=== PATIENT | male | born 1990 | race Asian ===

== ENCOUNTER 2022-07-02 09:58 | Outpatient (CLI) | payer BC, SELFPAY | END 2022-07-02 09:59 | disposition home or self-care (01) | PROVIDERS: PCP Family Medicine; Visit Provider Family Medicine | DX: E66.9 Obesity, unspecified (principal); E78.5 Hyperlipidemia, unspecified; Z13.1 Encounter for screening for diabetes mellitus; D50.9 Iron deficiency anemia, unspecified; Z83.3 Family history of diabetes mellitus | CPT/HCPCS: 80048; 80061 ==

== ENCOUNTER 2024-04-26 05:40 | Emergency (ER) | payer BC, SELFPAY ==
--- OUTSIDE RECORDS SUMMARY | 2024-04-26 05:42 | XMS_ITS | Clinical Summary ---
Author Organization [facility] Address [address] [place] [address] Care Team Providers Care Mortar Man Name Role Phone Sabrina Stringer MD Primary Care Provider [phone] Allergies Active Allergy Reactions Criticality Noted Date Comments Penicillins 10/21/2010 Medications secukinumab (COSENTYX) 150 mg/mL syrg Inject subcutaneou s. 0 06/09/2017 Active Active Problems Problem Noted Date Diagnosed Date Encounter to establish care 06/09/2017 Headache(784.0) 10/24/2010 Anemia, unspecified 10/24/2010 Nausea with vomiting 10/24/2010 Abnormal liver function test 10/24/2010 Other psoriasis 10/22/2010 Fever 10/22/2010 C. difficile diarrhea Immunizations Name Administration Dates Next Due Tdap 10/27/2006 Family History Medical History Relation Name Comments No Known Problems Father No Known Problems Mother Other Other no signif fh, n eg for heart disease, dm, stroke, cancer, anemia Kidney failure Paternal Grandfather Stroke Paternal Grandmother Relation Name Status Comments Father Mother Other Paternal Grandfather Paternal Grandmother Social History Tobacco Use Types Packs/Day Years Used Date Smoking Tobacco: Never Smokeless Tobacco: Never Alcohol Use Standard Drinks/Week Comments Yes 0 (1 standard drink = 0.6 oz pur e alcohol) socially only PHQ-2 Answer Date Recorded PHQ-2 Score 0 05/03/2018 Sex and Gender Information Value Date Recorded Sex Assigned at Not on file Legal Sex Male 7:02 AM CSO Gender Identity Not on file Sexual Orientation Not on file Obstetrics History Last Filed Vital Signs Vital Sign Reading Time Taken Comments Blood Pressure 120/70 06/09/2017 12:21 PM CDT Pulse 90 06/09/2017 12:21 PM CDT Temperature 36.3 C (97.4 F) 06/09/2017 12:21 PM CDT Respiratory Rate 16 03/20/2017 1:22 PM CSO Oxygen Saturation 96% 06/09/2017 12:21 PM CDT Inhaled Oxygen Concentration - - Weight 83.7 kg (184 lb 9.6 oz) 06/09/2017 12:21 PM CDT Height 167.6 cm (5' 6) 03/20/2017 1:22 PM CSO Body Mass Index 29.8 03/20/2017 1:22 PM CSO Plan of Treatment Health Maintenance Due Date Last Done Comments HIV for age 15-65 2004 Hepatitis C screening for ag e 18-79 2007 Tetanus booster 10/27/2016 10/27/2006 BMI (ht and wt on same day) for age 18+ 03/20/2018 03/20/2017, 05/19/2016 Depression screening for age 12+ 06/09/2018 06/09/2017, 05/19/2016, 05/19/2016 COVID-19 vaccine series ( season) 2023 Influenza for age 9-49 11/01/2023 Lipids for age 35-44 2024 Tdap Completed 10/27/2006 Pneumococcal series for age 6-49 Aged Out No longer eligible b ased on patient's age to complete this topic Insurance [facility] Advance Directives * Full Code (Latest Code Status on File) Date Activated Date Inactivated Comments 10/24/2010 2:07 PM 10/28/2010 3:36 PM * Full Code Date Activated Date Inactivated Comments 10/22/2010 6:17 AM 10/22/2010 6:52 PM Care Teams Mortar Man Relationship Specialty Start Date End Date Sabrina Stringer MD [address] [facility] [address] [place] [address] PCP - General Family Practice 06/03/17
[2024-04-26 05:44] VITALS: BP 142/71; PULSE 115; RESP 20; TEMP 36.9; O2SAT 99; BMI 32.4
[2024-04-26 06:04] VITALS: TEMP 36.9
[2024-04-26] MEDS: IBUPROFEN 200 MG TABLET 600 MG PO (06:04)
[2024-04-26 06:10] VITALS: O2SAT 99
--- NOTE | 2024-04-26 06:12 | ED.GENADULT ---
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 Presents here with presumed fever as he felt hot at home headache, cough, and mild sore throat. This all started yesterday, he did take Tylenol around 430 in the morning, has had no nausea vomiting no diarrhea no abdominal pain with this and has not been short of breath. Does not remember if he got his influenza shot this year. But he has had in the past. Immunizations are otherwise up-to-date a presents here with the significant other. Does have a history of psoriasis, is on immunosuppressive injections for this. Eating and drinking otherwise normally in, no swallowing problems, he has no problems with the rashes, no dysuria frequency, Associated symptoms: cough Treatments prior to arrival: other Related Data Home Medications ?Medication ?Instructions ?Recorded ?Confirmed secukinumab 150 mg/mL subcutaneous 150 mg subcut Q4W 07/02/22 04/26/24 pen injector (Cosentyx Pen 300 mg/2 Pens () Allergies Allergy/AdvReac Type Severity Reaction Status Date / Time amoxicillin Allergy Mild Hives Verified 04/26/24 05:47 Penicillins Allergy Mild Unknown Verified 04/26/24 05:47 Review of Systems Status of ROS: Reports: 10 or more systems reviewed and unremarkable except as noted in History and below PFSH PFS Medical History Colitis due to Clostridioides difficile ?A04.72 - Enterocolitis due to Clostridium difficile, not specified as recurrent (ICD-10) Allergic reaction to insect bite ?Z91.038 - Other insect allergy status (ICD-10) Surgical History Status post open reduction and internal fixation (ORIF) of fracture ?Z98.890 - Other specified postprocedural states (ICD-10) ?Z87.81 - Personal history of (healed) traumatic fracture (ICD-10) History of colonoscopy ?Z98.890 - Other specified postprocedural states (ICD-10) Family History Maternal Grandmother Stroke Diabetes Maternal Grandfather Kidney disease Social History Narrative: , 1 child, email campaign manager, student Non-smoker rarely consumes alcohol Activity, walking, marching and hiking at work Smoking Status: Never smoker Exam Narrative: Exam Narrative: Are she is seen in room 2, he is nontoxic, slightly tachycardic is noted. Pupils equal round reactive to light his TMs are normal his oropharynx is normal there is absolutely no meningismus, forward flexion, there is no limb adenopathy anterior posterior chains, neck is supple, chest is good air entry bilaterally with no wheezing crackles noted heart sounds no clicks murmurs or gallops, his abdomen is soft there is no guarding no organomegaly bowel sounds are normal, no CVA tenderness he moves all extremities independently and well, normal cap refill, normal skin turgor with no rashes. Neurologically intact. Const: Vital Signs, click to edit/add: Vital Signs - 24 hr 04/26/24 05:44 04/26/24 06:04 Temperature 98.5 F 98.5 F Pulse Rate [Right Pulse Oximeter] 115 H Respiratory Rate 20 Blood Pressure [Ri ght Upper Arm] 142/71 H Pulse Oximetry 99 Oxygen Delivery Me thod Room Air Documenting provider has reviewed patient's vital signs: yes Course Course ED Course: Patient is positive for influenza a, this is likely the source of his illness. Given the he is nontoxic, but immunosuppressed given his use of medications for psoriasis I do think he needs Tamiflu, I went over the risks benefits and side effects of this, along with symptomatic treatment for his influenza, he should return if signs and symptoms of worsening which we discussed. Is very comfortable with this. Vital Signs Vital signs: Initial Vital Signs Temperature 98.5 F 04/26/24 05:44 Temperature Source Temporal Artery Scan 04/26/24 05:44 Pulse Rate 115 H 04/26/24 05:44 Respiratory Rate 20 04/26/24 05:44 Blood Pressure 142/71 H 04/26/24 05:44 Blood Pressure Mean 94 04/26/24 05:44 Blood Pressure Position Sitting 04/26/24 05:44 Pulse Oximetry 99 04/26/24 05:44 Oxygen Delivery Method Room Air 04/26/24 05:44 Vital Signs Temperature 98.5 F 04/26/24 05:44 Pulse Rate 115 H 04/26/24 05:44 Respiratory Rate 20 04/26/24 05:44 Blood Pressure 142/71 H 04/26/24 05:44 Pulse Oximetry 99 04/26/24 05:44 Oxygen Delivery Method Room Air 04/26/24 05:44 Temperature 98.5 F 04/26/24 06:04 Pulse Rate 115 H 04/26/24 05:44 Respiratory Rate 20 04/26/24 05:44 Blood Pressure 142/71 H 04/26/24 05:44 Pulse Oximetry 99 04/26/24 05:44 Oxygen Delivery Method Room Air 04/26/24 05:44 Medications Administered Medications: Generic Name Dose Route Start Last Admin Trade Name Freq PRN Reason Stop Dose Admin Ibuprofen 600 mg 04/26/24 06:00 04/26/24 06:04 Ibuprofen 200 Mg Tablet PO 04/26/24 06:01 600 mg ONCE ONE Administration Medical Decision Making [facility] Narrative Medical decision making narrative: Life-threatening differential diagnosis is include meningitis, encephalitis, pneumonia, intra-abdominal infection, bacteremia, other differential diagnosis include but are not limited to viral upper respiratory tract infection, strep, urinary tract infection, skin infection, osteomyelitis, influenza, fungal infections, diskitis, epidural abscess, or fever of unknown origin. Lab Data Lab results reviewed: Yes I reviewed the patient's lab results Labs: Lab Results 04/26/24 Range/Units 05:40 SARS-CoV-2 (PCR) Negative SARS-CoV-2 (Negative) Influenza Type A (PCR) POSITIVE PCR FLU A A (Negative) Influenza Type B (PCR) Negative PCR FLU B (Negative) RSV (PCR) Negative PCR RSV (Negative) Discharge Plan Discharge Clinical Impression: Influenza A Patient Disposition: Home w/ Parent or Adult Condition: Stable Instructions: Influenza (ED), Droplet Precautions (ED) Additional Instructions: Symptomatic management, Tylenol and ibuprofen for fever control, no that her cough will likely worsen, take the Tamiflu as directed, as your little bit immunosuppressed with your use a your medication for your psoriasis. Increasing shortness of breath, chest pain, nausea vomiting he should come back and be seen. Use droplet precautions and try not to spread around. Activity Level: Light activity Discharge Diet: Regular Prescriptions: No Action Cosentyx Pen (2 Pens) 150 mg/mL pen injector 150 mg subcut Q4W Follow Up/Referrals: Rah Denny MD [Staff Physician] - Stand Alone Forms: [facility] Info Instructions
--- OUTSIDE RECORDS SUMMARY | 2024-04-26 06:18 | XMS_ITS | Clinical Summary ---
Author Organization [employer] [facility] Address [address] [place] [id number] Care Team Providers Care Investigator Internal Revenue Name Role Phone Sabrina Stringer MD Primary Care Provider [phone] Allergies Active Allergy Reactions Criticality Noted Date [...] on file Legal Sex Male 7:02 AM TREE SURGEON HELPER Gender Identity Not on file Sexual Orientation Not on file Obstetrics History Last Filed Vital Signs Vital Sign Reading Time Taken Comments Blood Pressure 120/70 06/09/2017 12:21 PM CDT Pulse 90 06/09/2017 12:21 PM CDT Temperature 36.3 C (97.4 F) 06/09/2017 12:21 PM CDT Respiratory Rate 16 03/20/2017 1:22 PM TREE SURGEON HELPER Oxygen Saturation 96% 06/09/2017 12:21 PM CDT Inhaled Oxygen Concentration - - Weight 83.7 kg (184 lb 9.6 oz) 06/09/2017 12:21 PM CDT Height 167.6 cm (5' 6) 03/20/2017 1:22 PM TREE SURGEON HELPER Body Mass Index 29.8 03/20/2017 1:22 PM TREE SURGEON HELPER Plan of Treatment Health Maintenance Due Date [...] patient's age to complete this topic Insurance [facility] Advance Directives * Full Code (Latest Code Status on File) Date Activated Date Inactivated Comments 10/24/2010 2:07 PM 10/28/2010 3:36 PM * Full Code Date Activated Date Inactivated Comments 10/22/2010 6:17 AM 10/22/2010 6:52 PM Care Teams Investigator Internal Revenue Relationship Specialty Start Date End Date Sabrina Stringer MD [address] [facility] [address] [place] [address] PCP - General Family Practice 06/03/17
[2024-04-26 06:27] LABS: PCR FLU A POSITIVE PCR FLU A (Negative); PCR FLU B Negative PCR FLU B (Negative); PCR RSV Negative PCR RSV (Negative); SARS PCR* Negative SARS-CoV-2 (Negative)
[2024-04-26 06:35] VITALS: BP 125/74; PULSE 100; RESP 20; TEMP 36.9; O2SAT 99
[2024-04-26 06:37] VITALS: BP 125/74; PULSE 100; RESP 20; TEMP 36.9
== END 2024-04-26 06:37 | disposition home or self-care (01) ==
PROVIDERS: Emergency Provider Family Medicine
DX: J10.1 Influenza due to other identified influenza virus with other respiratory manifestations (principal)
CPT/HCPCS: 87631; 94761; 99283; 99284; A9270

== ENCOUNTER 2024-11-15 10:49 | Outpatient (CLI) | payer BC, SELFPAY | END 2024-11-15 10:50 | disposition home or self-care (01) | PROVIDERS: PCP Internal Medicine; Visit Provider Internal Medicine | DX: E78.5 Hyperlipidemia, unspecified (principal) | CPT/HCPCS: 80053; 80061 ==